=== PATIENT | male | born 1950 | race Caucasian/White ===

== ENCOUNTER 2016-10-04 09:08 | Emergency (ER) | payer MEDICARE, BC ==
[2016-10-04] MEDS ORDERED: LIDOCAINE VISCOUS 2% 15 ML CUP MUCOUS MEM STA (09:34)
--- NOTE | 2016-10-04 10:08 | ED ---
ENT HPI - General Chief complaint: ENT Stated complaint: sorethroat, congestion Time Seen by Provider: 10/04/16 09:16 Source: patient, RN notes reviewed Mode of arrival: ambulatory Limitations: no limitations - History of Present Illness Initial comments: 65-year-old male presents emergency Department chief complaint throat irritation. Patient states he's had this for the past 2 or 3 days. Patient states pain and he points to the middle of his neck. Patient states he's had a cough with some phlegm production with this. Patient denies any fever chills. Patient denies any history of this in the past. Patient states he has pain when he tries to swallow water. Patient states he took some of the throat medicine he states his tooth that hit the bone infectious cause burning. Patient states he's never having tingling this before. Patient states is not currently having any other symptoms.Patient denies any recent fever, chills, shortness of breath, chest pain, back pain, abdominal pain, nausea vomiting, numbness or tingling, dysuria or hematuria, constipation or diarrhea, headaches or visual changes, or any other current symptoms. - Related Data Home Medications Medication Instructions Recorded Confirmed Fluticasone/Salmeterol [Advair 1 puff INHALATION RT-BID 04/22/15 10/04/16 100-50 Diskus] Omeprazole 40 mg PO AC-BRKFST 04/22/15 10/04/16 Multivitamin [Men's Multi-Vitamin] 1 tab PO DAILY 10/16/15 10/04/16 Verapamil HCl [Verapamil ER] 180 mg PO DAILY 10/04/16 10/04/16 Previous Rx's Medication Instructions Recorded Atorvastatin [Lipitor] 80 mg PO DAILY #30 tab 04/23/15 Edoxaban Tosylate [Savaysa] 60 mg PO DAILY #90 tab 10/17/15 Flecainide [Tambocor] 100 mg PO Q12HR #180 tablet 10/17/15 Metoprolol Tartrate 25 mg PO BID #30 tab 10/24/15 Albuterol Inhaler [Ventolin Hfa 1 - 2 puff INHALATION Q4-6H PRN #1 10/04/16 Inhaler] inhaler Albuterol Nebulized [Ventolin 2.5 mg INHALATION Q4H #20 nebu 10/04/16 Nebulized] Azithromycin [Zithromax] 250 mg PO DIRECTED #6 tab 10/04/16 predniSONE 50 mg PO DAILY #5 tab 10/04/16 Allergies Allergy/AdvReac Type Severity Reaction Status Date / Time No Known Allergies Allergy Verified 10/04/16 09:30 Review of Systems ROS Statement: Those systems with pertinent positive or pertinent negative responses have been documented in the HPI. ROS Other: All systems not noted in ROS Statement are negative. Past Medical History Past Medical History: Atrial Fibrillation, Asthma, GERD/Reflux, Hyperlipidemia Additional Past Medical History / Comment(s): Chronic kidney disease stage III History of Any Multi-Drug Resistant Organisms: None Reported Past Surgical History: Appendectomy Past Anesthesia/Blood Transfusion Reactions: No Reported Reaction Past Psychological History: No Psychological Hx Reported Smoking Status: Current some day smoker Past Alcohol Use History: None Reported Additional Past Alcohol Use History / Comment(s): OCCASIONAL CIGARS QUIT 2012 he denies any cigarette smoking, medical marijuana, marijuana, street drug use. Past Drug Use History: None Reported - Past Family History Father Family Medical History: Cancer Additional Family Medical History / Comment(s): BONE CANCER Sister(s) Family Medical History: Cancer, GERD/Reflux Additional Family Medical History / Comment(s): ESOPHAGEAL CANCER Brother(s) Family Medical History: Cancer Additional Family Medical History / Comment(s): LUNG CANCER General Exam Limitations: no limitations General appearance: alert, in no apparent distress Head exam: Present: atraumatic, normocephalic, normal inspection Eye exam: Present: normal appearance, PERRL, EOMI. Absent: scleral icterus, conjunctival injection, periorbital swelling ENT exam: Present: normal exam, mucous membranes moist Neck exam: Present: normal inspection. Absent: tenderness, meningismus, lymphadenopathy Respiratory exam: Present: normal lung sounds bilaterally. Absent: respiratory distress, wheezes, rales, rhonchi, stridor Cardiovascular Exam: Present: regular rate, normal rhythm, normal heart sounds. Absent: systolic murmur, diastolic murmur, rubs, gallop, clicks GI/Abdominal exam: Present: soft, normal bowel sounds. Absent: distended, tenderness, guarding, rebound, rigid Back exam: Present: normal inspection Neurological exam: Present: alert, oriented X3, CN II-XII intact. Absent: motor sensory deficit Psychiatric exam: Present: normal affect, normal mood Skin exam: Present: warm, dry, intact, normal color. Absent: rash Course Vital Signs 10/04/16 10/04/16 10/04/16 09:12 11:13 11:19 Temperature 97.9 F Pulse Rate 88 88 89 Respiratory 20 Rate Blood Pressure 170/89 O2 Sat by Pulse 96 Oximetry Medical Decision Making - Medical Decision Making 65-year-old male presents emergency department with a chief complaint of throat irritation. Patient is able to tolerate a warm glass of water here in the emergency department. At this time the patient seems to be intermittent did help him and he is able to tolerate drinking water includes cough. This is most likely suffering from a bronchitis. Patient has improved with the breathing treatment. We discussed was started on antibiotics and steroids. We discussed that he needs to see his doctor in the next 2 days to be reassessed. We did discuss that there could be something in throat and he may need additional testing such as scoping to look for this if this does not clear up with the medicine. Patient stated he understood and started his . All their questions have been answered. They will be discharged home. - Radiology Data Radiology results: report reviewed, image reviewed Disposition Clinical Impression: Bronchitis Disposition: HOME SELF-CARE Condition: Stable Instructions: Acute Bronchitis (ED) Additional Instructions: Please use medication as discussed. Please follow up with family doctor if symptoms have not improved over the next two days. Please return to the emergency room if your symptoms increase or worsen or for any other concerns. Prescriptions: Albuterol Inhaler [Ventolin Hfa Inhaler] 1 - 2 puff INHALATION Q4-6H PRN #1 inhaler PRN Reason: Cough Albuterol Nebulized [Ventolin Nebulized] 2.5 mg INHALATION Q4H #20 nebu Azithromycin [Zithromax] 250 mg PO DIRECTED #6 tab predniSONE 50 mg PO DAILY #5 tab Referrals: Norbert Garay MD [Primary Care Provider] - 1-2 days Time of Disposition: 11:31
--- NOTE | 2016-10-04 10:21 | XR ---
EXAMINATION TYPE: XR chest 2V DATE OF EXAM: 10/04/2016 9:45 AM COMPARISON: Prior chest x-ray 24 October 2015 HISTORY: Cough TECHNIQUE: Frontal and lateral views of the chest are obtained. FINDINGS: There is no focal air space opacity, pleural effusion, or pneumothorax seen. The cardiac silhouette size is within normal limits. Prominent lung volume may be indicative of COPD. There is b ronchial wall thickening. The osseous structures are intact. IMPRESSION: Correlate for bronchitis.
[2016-10-04] MEDS ORDERED: IPRATROPIUM-ALBUTEROL 3 ML NEB INHALATION STA (10:25)
[2016-10-04 11:38] VITALS: BP 157/91; PULSE 86; RESP 18; TEMP 98
== END 2016-10-04 11:36 | disposition home or self-care (01) ==
LOC: EC 09:08
DX: J40 Bronchitis, not specified as acute or chronic (principal); I48.91 Unspecified atrial fibrillation; J45.909 Unspecified asthma, uncomplicated; E78.5 Hyperlipidemia, unspecified; N18.3 Chronic kidney disease, stage 3 (moderate); K21.9 Gastro-esophageal reflux disease without esophagitis; F17.290 Nicotine dependence, other tobacco product, uncomplicated; Z79.51 Long term (current) use of inhaled steroids; Z79.01 Long term (current) use of anticoagulants; Z79.899 Other long term (current) drug therapy
CPT/HCPCS: 71020; 94640; 99284

== ENCOUNTER → 2016-10-11 | Outpatient (CLI) | payer MEDICARE, BC ==
--- NOTE | 2016-10-11 09:16 | CT ---
EXAMINATION TYPE: CT chest wo con DATE OF EXAM: 10/11/2016 7:41 AM COMPARISON: NONE HISTORY: chronic bronchitis CT DLP: 674.4 mGycm Automated exposure control for dose reduction was used. Limited axial acquisition obtained through the lungs with high-resolution algorithm. FINDINGS: There is no significant bronchiectasis. Bronchial wall thickening is noted centrally. No significant pulmonary fibrosis or airspace disease, no evident lung mass. No endobronchial lesion, pleural or per icardial effusion. There are coronary artery calcifications, no pleural or pericardial effusion. Ther e is a hiatal hernia present, correlate for gastroesophageal reflux disease. IMPRESSION: FINDINGS COMPATIBLE WITH PATIENT'S HISTORY OF CHRONIC BRONCHITIS. HIATAL HERNIA DESCRIBED.
--- NOTE | 2016-10-11 09:22 | CT ---
"EXAMINATION TYPE: CT soft tissue neck wo con DATE OF EXAM: 10/11/2016 7:41 AM COMPARISON: NONE HISTORY: enlarged lymph nodes CT DLP: 463.9 mGycm Automated exposure control for dose reduction was used. Helical acquisition obtained from the skull b ase through the upper chest without contrast FINDINGS: Lack of intravenous contrast could compromise sensitivity. Anterior cervical chain nodes do not appea r enlarged by CT criteria. There is a four-vessel arch. No superior mediastinal adenopathy or clavicu lar adenopathy evident. Low dense focus within the right lobe of the thyroid measures 13 to 14 mm. Sa livary glands show symmetric appearance. Skull base is normal. Atheromatous change present within the cerebral vasculature. Inflammatory changes noted in the left maxillary sinus. Lung apices are unrema rkable. There is a spinal curvature. At the level of the vallecula, piriform sinus on the left shows abnormal increased soft tissue as com pared to the right, there is a nodular appearance at the posterior lateral aspect of the supraglottic tissues extending into the airway. IMPRESSION: ABNORMAL SOFT TISSUE PRESENT AT THE LEVEL OF THE PIRIFORM SINUS ON THE LEFT DESCRIBED. RECOMMEND E NT CONSULT, CONSIDER DIRECT VISUALIZATION. A Yellow message has been communicated to Norbert Garay MD via the [employer] | Critical Result sy stem on 10/11/2016 9:20 AM, Message ID [id number]."
== END | disposition home or self-care (01) ==
LOC: RADCTMAIN 07:00
PROVIDERS: ATTEND Internal Medicine Geriatric Medicine
DX: J42 Unspecified chronic bronchitis (principal); K44.9 Diaphragmatic hernia without obstruction or gangrene; M79.89 Other specified soft tissue disorders
CPT/HCPCS: 70490; 71250

== ENCOUNTER 2016-11-11 12:11 | Day surgery (SDC) | payer MEDICARE, BC ==
[~2016-11-11 12:11] MED LIST: ALPRAZolam 0.25 MG TAB PO ONE; SODIUM BICARB 4% 5 ML VIAL (0.48 MEQ/ML) MISCELLANE PRN
[2016-11-11 12:58] VITALS: RESP 16; TEMP 98
--- NOTE | 2016-11-11 13:37 | US ---
ULTRASOUND GUIDED FNA THYROID BIOPSY: CLINICAL HISTORY: Request for right thyroid nodule FNA FINDINGS: The procedure was explained to the patient. The risks, complications, benefits and alternatives were discussed and any questions were answered. Informed consent was obtained. Patient was placed supin e on the ultrasound table and prepped and draped in the usual sterile fashion. Utilizing a 25 gauge needle, five passes were made into the requested right thyroid nodule. Patient was stable throughout the procedure. Pathology is pending. All elements of maximal barrier technique were utilized. IMPRESSION: 1. Successful ultrasound guided FNA thyroid biopsy.
[2016-11-11 13:50] VITALS: BP 126/83; PULSE 65
--- NOTE | 2016-11-11 15:06 | US ---
EXAMINATION TYPE: US thyroid st tissue head/neck DATE OF EXAM: 11/11/2016 12:50 PM COMPARISON: on PACS CLINICAL HISTORY: E04.1 Thyroid nodule. nodule seen on CT GLAND SIZE: Right Lobe: 4.9 x 2.2 x 1.8 cm Overall Parenchyma: homogenous Left Lobe: 4.0 x 2.0 x 1.9 cm Overall Parenchyma: homogeneous Isthmus Thickness: 0.4 cm NODULES RIGHT: # of nodules measured on right: 2 1. 2.0 X 1.1 x 1.4 cm Complex nodule at the lower pole with well-defined margins. This nodule is w ider than tall and shows intranodular vascularity. Prior size: no prior 2. 0.8 X 0.7 x 0.5 cm hypoechoic solid nodule at the lower pole with well-defined margins. This nod ule is wider than tall and shows intranodular vascularity. Prior size: no prior LEFT: # of nodules measured on left: 1 1. 1.1 X 1.0 x 0.7 cm hypoechoic solid nodule at the mid pole with well-defined margins. This nodu le is wider than tall and shows no intranodular vascularity. Prior size: no prior 2. There is a 0.8 x 0.5 cm hypoechoic homogenous small lymph node present. ISTHMUS: # of nodules measured in the isthmus: 0 TECHNOLOGIST IMPRESSION: Multiple nodules seen in bilateral thyroid lobes. Bilateral neck scanned, no abnormal lymphadenopathy noted. IMPRESSION: 1. Complex hypoechoic nodule mid right lobe thyroid. Smaller nodule is also adjacent.
== END 2016-11-11 13:45 | disposition home or self-care (01) ==
LOC: RADPROMAIN 12:11
PROVIDERS: ATTEND Otolaryngology
DX: E04.2 Nontoxic multinodular goiter (principal)
CPT/HCPCS: 10022; 76536; 76942; 88173; 88305

== ENCOUNTER → 2020-06-05 | Outpatient (CLI) | payer BC, MEDICARE ==
[2020-06-05 17:55] LABS: African American GFR (CKD) 88.6 (60.0-200.0); Albumin 4.1 g/dL (3.80-4.90); Albumin/Globulin Ratio 1.86 (1.60-3.17); Anion Gap 6.8 mmol/L (4.00-12.00); Calcium 9.3 mg/dL (8.7-10.3); Carbon Dioxide 29.2 mmol/L (21.6-31.8); Chol/HDL Ratio 3.43; Globulin 2.2 g/dL (1.6-3.3); LDL Cholesterol,Calculated 117.4 mg/dL (0.0-131.0); Magnesium 2.1 mg/dL (1.5-2.4); Non-African American GFR(CKD) 76.5 (60.0-200.0); Total Bilirubin 0.7 mg/dL (0.3-1.2); Total Protein 6.3 g/dL (6.2-8.2); VLDL Calculation 18.6 mg/dL (5.00-40.00)
== END | disposition home or self-care (01) ==
LOC: LABWHC1 10:40
PROVIDERS: ATTEND Nurse Practitioner Adult Health
DX: E78.5 Hyperlipidemia, unspecified (principal); I48.3 Typical atrial flutter
CPT/HCPCS: 36415; 80053; 80061; 83721; 83735; 84443; 84481

== ENCOUNTER 2021-01-14 09:01 | Day surgery (SDC) | payer MEDICARE ==
[2021-01-12 14:33] VITALS: BMI 29.8
[~2021-01-14 09:01] MED LIST changes: -ALPRAZolam 0.25 MG TAB PO ONE; +LACTATED RINGERS 1,000 ML IV SCH; +LIDOCAINE 1% (10MG/ML) FOR IV START INTRADERMA PRN; -SODIUM BICARB 4% 5 ML VIAL (0.48 MEQ/ML) MISCELLANE PRN
[2021-01-14 09:46] VITALS: RESP 16; TEMP 97.3
[2021-01-14] MEDS ORDERED: PROPOFOL 10 MG/ML 20 ML VIAL IV ONE (09:59)
[2021-01-14] MEDS ORDERED: LIDOCAINE 1% INJ 10MG/ML (20 ML MDV) ONE (09:59)
--- NOTE | 2021-01-14 10:08 | P.GSHP ---
History of Present Illness H&P Date: 01/14/21 Chief Complaint: GERD, history of Medley's esophagus This a 70-year-old male presents today for EGD. He has history of GERD and Medley's esophagus. Past Medical History Past Medical History: Atrial Fibrillation, Asthma, CVA/TIA, GERD/Reflux, Hyperlipidemia, Renal Disease, Thyroid Disorder Additional Past Medical History / Comment(s): TIA, period of swallowing difficulty, History of Any Multi-Drug Resistant Organisms: None Reported Past Surgical History: Tonsillectomy Additional Past Surgical History / Comment(s): CARDIOVERSION Past Anesthesia/Blood Transfusion Reactions: No Reported Reaction Smoking Status: Former smoker - Past Family History Father Family Medical History: Cancer Additional Family Medical History / Comment(s): BONE CANCER Sister(s) Family Medical History: Cancer, GERD/Reflux Additional Family Medical History / Comment(s): ESOPHAGEAL CANCER Brother(s) Family Medical History: Cancer Additional Family Medical History / Comment(s): LUNG CANCER Medications and Allergies Home Medications Medication Instructions Recorded Confirmed Type Omeprazole 40 mg PO AC-BRKFST 04/22/15 01/12/21 History Atorvastatin [Lipitor] 80 mg PO DAILY #30 tab 04/23/15 01/12/21 Rx Multivitamin [Men's Multi-Vitamin] 1 tab PO DAILY 10/16/15 01/12/21 History Edoxaban Tosylate [Savaysa] 60 mg PO DAILY #90 tab 10/17/15 01/12/21 Rx Flecainide [Tambocor] 100 mg PO Q12HR #180 tablet 10/17/15 01/12/21 Rx Metoprolol Tartrate 25 mg PO BID #30 tab 10/24/15 01/12/21 Rx Albuterol Inhaler (Mhu) [Ventolin 1 - 2 puff INHALATION Q4-6H PRN #1 10/04/16 01/12/21 Rx Hfa Inhaler (Mhu)] inhaler Albuterol Nebulized [Ventolin 2.5 mg INHALATION Q4H #20 nebu 10/04/16 01/12/21 Rx Nebulized] Verapamil HCl [Verapamil ER] 180 mg PO DAILY 10/04/16 01/12/21 History Budesonide/Formoterol Fumarate 2 puff INHALATION BID 01/12/21 01/12/21 History [Symbicort 160-4.5 Mcg Inhaler] Allergies Allergy/AdvReac Type Severity Reaction Status Date / Time No Known Allergies Allergy Verified 01/14/21 09:37 Surgical - Exam Vital Signs Temp Pulse Resp BP Pulse Ox 97.3 F L 61 16 158/87 96 01/14/21 09:42 01/14/21 09:42 01/14/21 09:42 01/14/21 09:42 01/14/21 09:42 - General well developed, well nourished, no distress - Eyes PERRL - ENT normal pinna - Neck no masses - Respiratory normal expansion - Cardiovascular Rhythm: regular - Abdomen Abdomen: soft, non tender Assessment and Plan Assessment: GERD, history of Medley's. Patient will undergo EGD today.
--- NOTE | 2021-01-14 10:17 | P.OP ---
Date of Procedure: 01/14/21 Preoperative Diagnosis: GERD Postoperative Diagnosis: Antral gastritis Moderate size hiatal hernia Esophagitis Procedure(s) Performed: EGD Anesthesia: MAC Surgeon: Sameer Zaragoza Pathology: other (Antrum, esophagus) Condition: stable Disposition: PACU Description of Procedure: The patient's placed on the endoscopy table in the lateral position. He received IV sedation. The gastro-placed oropharynx passed in the esophagus and the stomach. Scope was placed through the pylorus. The first and second portion of the duodenum appeared normal. Scope was then brought back the antrum and this was mildly inflamed. A biopsies performed. The scope was retroflexed and remainder of the stomach appeared normal. The patient had a moderate size hiatal hernia. The GE junction was at 38 cm. The distal esophagus appeared inflamed a biopsy performed. The proximal esophagus appeared normal. The scope was withdrawn for patient.
[2021-01-14 10:33] VITALS: BP 135/80; PULSE 58
== END 2021-01-14 10:51 | disposition home or self-care (01) ==
LOC: ORWHC2ENDO 09:01
PROVIDERS: ATTEND Surgery
DX: K29.50 Unspecified chronic gastritis without bleeding (principal); K21.00 Gastro-esophageal reflux disease with esophagitis, without bleeding; K44.9 Diaphragmatic hernia without obstruction or gangrene; I48.91 Unspecified atrial fibrillation; J45.909 Unspecified asthma, uncomplicated; Z86.73 Personal history of transient ischemic attack (TIA), and cerebral infarction without residual deficits; E78.5 Hyperlipidemia, unspecified; R13.10 Dysphagia, unspecified; K22.70 Barrett's esophagus without dysplasia; N28.9 Disorder of kidney and ureter, unspecified; E07.9 Disorder of thyroid, unspecified; Z90.89 Acquired absence of other organs; Z87.891 Personal history of nicotine dependence; Z98.890 Other specified postprocedural states; Z80.8 Family history of malignant neoplasm of other organs or systems; Z80.0 Family history of malignant neoplasm of digestive organs; Z80.1 Family history of malignant neoplasm of trachea, bronchus and lung; Z83.79 Family history of other diseases of the digestive system; Z79.01 Long term (current) use of anticoagulants; Z79.899 Other long term (current) drug therapy; Z79.51 Long term (current) use of inhaled steroids; Z79.02 Long term (current) use of antithrombotics/antiplatelets
CPT/HCPCS: 88305; 43239; J2001; J2704

== ENCOUNTER 2021-11-01 09:38 | Day surgery (SDC) | payer MEDICARE ==
[~2021-11-01 09:38] MED LIST changes: -LIDOCAINE 1% (10MG/ML) FOR IV START INTRADERMA PRN
[2021-11-01] MEDS ORDERED: SODIUM CHLORIDE 0.9% 1,000 ML IV ONE (10:15)
[2021-11-01 10:24] LABS: Basophils # (A) 0.1 k/uL (0-0.2); Basophils % (A) 1 %; Eosinophils # (A) 0.8 k/uL (0-0.7); Eosinophils % (A) 8 %; HCT 47.3 % (39.0-53.0); HGB 15.5 gm/dL (13.0-17.5); Lymphocytes # (A) 1.8 k/uL (1.0-4.8); Lymphocytes % (A) 18 %; MCH 30.4 pg (25.0-35.0); MCHC 32.7 g/dL (31.0-37.0); MCV 92.8 fL (80.0-100.0); Mean Platelet Volume 8.1; Monocytes # (A) 0.5 k/uL (0-1.0); Monocytes % (A) 5 %; Neutrophils # (A) 6.6 k/uL (1.3-7.7); Neutrophils % (A) 67 %; Platelet Count 236 k/uL (150-450); RDW 12.9 % (11.5-15.5)
[2021-11-01 10:34] LABS: Calcium 9.6 mg/dL (8.4-10.2); Potassium 4.5 mmol/L (3.5-5.1)
[2021-11-01] MEDS ORDERED: WATER FOR INJECTION, STERILE 10 ML VIAL IV ONE (12:57)
[2021-11-01] MEDS ORDERED: SUCCINYLCHOLINE CHLORIDE 100 MG/5 ML SYR IV ONE (12:57)
[2021-11-01] MEDS ORDERED: HYDROmorphone (PF) 1 MG/ML ONE (12:57)
[2021-11-01] MEDS ORDERED: ISOPROTERENOL 250 MCG/1.25 ML SYR IV ONE (12:57)
[2021-11-01] MEDS ORDERED: MIDAZOLAM 2 MG/2 ML VIAL ONE (12:57)
[2021-11-01] MEDS ORDERED: HEPARIN SODIUM,PORCINE 10,000 UNIT/ML 1 ML VIAL ONE (12:57)
[2021-11-01] MEDS ORDERED: PHENYLEPHRINE-0.9% NACL SYG 1,000 MCG/10 ML SYRINGE ONE (12:57)
[2021-11-01] MEDS ORDERED: PROPOFOL 10 MG/ML 20 ML VIAL IV ONE (12:57)
[2021-11-01] MEDS ORDERED: fentaNYL (PF) 50 MCG/ML 2 ML AMP ONE (12:57)
[2021-11-01] MEDS ORDERED: HEPARIN SOD,PORK IN 0.45% NACL 25,000 UNIT in 0.45% NACL 1 250ML.BAG IV ONE (13:50)
[2021-11-01] MEDS ORDERED: LIDOCAINE 1% INJ 10MG/ML (20 ML MDV) SQ ONE (13:55)
[2021-11-01] MEDS ORDERED: LIDOCAINE 1% INJ 10MG/ML (20 ML MDV) ONE (13:56)
[2021-11-01] MEDS ORDERED: ACETAMINOPHEN TAB 325 MG TAB PO PRN (15:52)
[2021-11-01] MEDS ORDERED: IOPAMIDOL-370 100ML BTL INJ ONE (15:58)
[2021-11-01 16:43] VITALS: RESP 16
--- NOTE | 2021-11-01 16:49 | P.EPPROC ---
- EP Procedure Note Electrophysiology Procedure Note: PROCEDURE A. fib ablation/pulmonary vein isolation DIAGNOSIS Atrial fibrillation, symptomatic, refractory to therapy, paroxysmal RESULT No left atrial appendage mass seen on intracardiac echo Successful A. fib ablation/pulmonary vein isolation of all veins using cryo- ablation, including the mackenzie on both sides Complete entrance block in all 4 veins confirmed No evidence for phrenic nerve injury Esophageal deflection YES mild leftward deflection needed during right pulmonary vein isolation PROCEDURE DETAILS Patient was brought to the EP lab in a fasting state after obtaining written informed consent. Procedure performed under general anesthesia Esophagus was intubated. Esophageal temperature monitoring with circa catheter. Esophageal deflection with an endoscope to avoid hypothermia of the esophagus. After initial muscle relaxant use, muscle relaxants were not given thereafter in order to assess phrenic nerve during procedure. Patient prepped and draped as per protocol Cryo ablation-set up with standard preparation of the cryoablation tools done. Femoral Venous access obtained on the right and left groins and sheaths placed Diagnostic catheters for the high right atrium, phrenic nerve stimulation and pacing, His bundle, coronary sinus placed Intracardiac echo catheter placed. Long sheath placed in the right atrium Left and right transseptal catheterization performed under intracardiac echo guidance. Intravenous heparin with aCT above 300 Later, catheter positioning and balloon positioning in the left atrium and pulmonary veins, under intracardiac echo guidance Diagnostic EP study with coronary sinus pacing and recording Baseline measurements: Sinus cycle length 776 ms, SD interval 120 ms, QRS 123 ms and QT interval 400 ms AH 71 ms and HV interval 56 ms Sinus node recovery times at 600, 540 ms were 1196, 1634 and 1271 ms. AV node Wenckebach block f440 ms from the coronary sinus Slow pathway was noted with high right atrial pacing at 470 ms AV node Wenckebach block 410 ms Atrial extra stimulation after double extrastimuli, with 2 Different DrCarine trains. No SVT induced Excess ablation performed on Isuprel. No SVT Ventricular extra stimulation from the RV septum. No SVT Transseptal catheterization performed RA pressure 14/8/11 LA pressure 20/10/14 Transseptal catheterization performed with standard sheath. The cryoablation sheath was then placed with an over the wire exchange without any acute complications. The cryoablation balloon was placed in the office of each pulmonary vein and all 4 pulmonary veins were isolated. IV dye was injected to confirm occlusion. Goal: achieve complete occlusion of the pulmonary vein, achieve -30 degrees C at 30 seconds and achieve -40 degrees C at 60 seconds and a time to effect of less than 60 seconds. If not, the balloon was repositioned to obtain this result After completion of Cryoblation with durations from 180-240 seconds, entrance block was confirmed with the Attain circular catheter in a roving fashion around the antrum of the pulmonary veins Phrenic nerve pacing was performed from the SVC, right innominate vein area and diaphragm voltage was monitored. Diaphragmatic contractions were also monitored manually for strength of contraction. At the end of the procedure the Achieve catheter was once again used to check for entrance block Phrenic nerve stimulation was performed to confirm diaphragmatic stimulation the end of the procedure Cine fluoroscopy was performed at the very end of the procedure to confirm movement of both diaphragms with inspiration and expiration At the end of the procedure the patient was extubated Venous sheaths were removed and hemostasis assured with a closure device PROCEDURES PERFORMED Diagnostic EP study CS pacing and recording Left and right transseptal catheterization Catheter the mapping of the tachycardia Intracardiac echocardiography Pulmonary vein isolation with transseptal and comprehensive EPS, 66031 Drug infusion, [id number]
[2021-11-01] MEDS: ACETAMINOPHEN IV (For NPO) 1,000 MG in EMPTY BAG 1 BAG IVPB ONE ×2 (17:00→17:15)
[2021-11-01] MEDS: SYMBICORT 160-4.5 MCG INHALER INHALATION SCH (20:01)
[2021-11-01] MEDS: ALBUTEROL NEBULIZED 2.5 MG/3 ML INHALATION SCH ×2 (20:01)
[2021-11-01] MEDS: FLECAINIDE 50 MG TAB PO SCH (20:55)
[2021-11-01] MEDS: METOPROLOL TARTRATE 25 MG TAB PO SCH (20:55)
[2021-11-01] MEDS ORDERED: RIVAROXABAN 20 MG TAB PO SCH (21:00)
[2021-11-02] MEDS: ALBUTEROL NEBULIZED 2.5 MG/3 ML INHALATION SCH ×5 (00:21→15:11)
[2021-11-02] MEDS: SYMBICORT 160-4.5 MCG INHALER INHALATION SCH (07:29)
[2021-11-02] MEDS ORDERED: PANTOPRAZOLE 40 MG TABLET PO SCH (07:30)
[2021-11-02] MEDS: METOPROLOL TARTRATE 25 MG TAB PO SCH (08:56)
[2021-11-02] MEDS: FLECAINIDE 50 MG TAB PO SCH (08:56)
[2021-11-02] MEDS ORDERED: ATORVASTATIN 20 MG TAB PO SCH (09:00)
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
[2021-11-02 16:16] VITALS: BP 129/75; PULSE 92; TEMP 97.5
== END 2021-11-02 16:30 | disposition home or self-care (01) ==
LOC: CATHEP 09:38 → 6NMEDSUR 15:40 → CATHEP 11-02 16:30
PROVIDERS: ATTEND Internal Medicine Clinical Cardiac Electrophysiology
DX: I48.0 Paroxysmal atrial fibrillation (principal); E07.9 Disorder of thyroid, unspecified; E78.5 Hyperlipidemia, unspecified; Z86.73 Personal history of transient ischemic attack (TIA), and cerebral infarction without residual deficits; K21.9 Gastro-esophageal reflux disease without esophagitis; N28.9 Disorder of kidney and ureter, unspecified; Z20.822 Contact with and (suspected) exposure to COVID-19; Z79.899 Other long term (current) drug therapy; Z79.01 Long term (current) use of anticoagulants
CPT/HCPCS: 94640 ×4; 93623; 93656; 80048; 85025; 87635; C1894 ×2; C1769 ×5; C1760; C1730 ×2; C1759; C1893; C1733; C1766; J2250; J1644 ×2; J2001; J3010; J1170; J0131; J2370; J0330; J2704; Q9967

== ENCOUNTER → 2022-02-07 | Outpatient (CLI) | payer MEDICARE ==
--- NOTE | 2022-02-07 08:30 | US ---
EXAMINATION TYPE: US kidneys/renal and bladder DATE OF EXAM: 02/07/2022 COMPARISON: NONE CLINICAL HISTORY: R79.9 abnormal blood chemistry. EXAM MEASUREMENTS: Right Kidney: 10.9 x 5.3 x 4.9 cm Left Kidney: 10.9 x 5.3 x 5.4 cm Right Kidney: No hydronephrosis or masses seen Left Kidney: No hydronephrosis or masses seen, inferior pole limited by overlying bowel gas Bladder: wnl Bilateral Jets seen: yes There is no evidence for hydronephrosis at this point in time. No nephrolithiasis is seen. No dipesh s are identified on images obtained. The urinary bladder is adequately distended. Bilateral uretera l jets are seen. IMPRESSION: No hydronephrosis seen bilaterally.
== END | disposition home or self-care (01) ==
LOC: RADUSWWP 07:47
PROVIDERS: ATTEND Internal Medicine Geriatric Medicine
DX: R79.9 Abnormal finding of blood chemistry, unspecified (principal)
CPT/HCPCS: 76770

== ENCOUNTER 2022-06-30 09:25 | Day surgery (SDC) | payer MEDICARE ==
[2022-06-29 13:40] VITALS: BMI 29.1
[~2022-06-30 09:25] MED LIST changes: +DEXAMETHASONE SOD PHOSPHATE 4 MG/ML 1 ML VIAL IV ONE; +HYDROmorphone 0.5 MG/0.5 ML SYRINGE IVP PRN; +LIDOCAINE 1% (10MG/ML) FOR IV START INTRADERMA PRN; +ONDANSETRON 4 MG/2 ML VIAL IVP ONE; +ONDANSETRON 4 MG/2 ML VIAL IVP PRN
[2022-06-30 10:04] VITALS: RESP 16; TEMP 96.5
--- NOTE | 2022-06-30 10:46 | P.GSHP ---
History of Present Illness H&P Date: 06/30/22 Chief Complaint: Screening colonoscopy Is a 71-year-old male who had a recent positive colon guard test. Patient presents today for screening colonoscopy Past Medical History Past Medical History: Atrial Fibrillation, Asthma, CVA/TIA, GERD/Reflux, Hyperlipidemia, Osteoarthritis (OA), Prostate Disorder, Renal Disease Additional Past Medical History / Comment(s): TIA, MELENOMA -CANCER, History of Any Multi-Drug Resistant Organisms: None Reported Past Surgical History: Ablation, Tonsillectomy Additional Past Surgical History / Comment(s): CARDIOVERSION, COLONOSCOPY X2, CARDIAC ABLATION Past Anesthesia/Blood Transfusion Reactions: No Reported Reaction Smoking Status: Former smoker - Past Family History Father Family Medical History: Cancer Additional Family Medical History / Comment(s): BONE CANCER Sister(s) Family Medical History: Cancer, GERD/Reflux Additional Family Medical History / Comment(s): ESOPHAGEAL CANCER Brother(s) Family Medical History: Cancer Additional Family Medical History / Comment(s): LUNG CANCER, #2BROTHER - LIVER Medications and Allergies Home Medications Medication Instructions Recorded Confirmed Type Omeprazole 40 mg PO AC-BRKFST 04/22/15 06/29/22 History Metoprolol Tartrate 25 mg PO BID #30 tab 10/24/15 06/29/22 Rx Albuterol Inhaler [Ventolin Hfa 1 - 2 puff INHALATION Q4-6H PRN #1 10/04/16 06/29/22 Rx Inhaler] inhaler Budesonide/Formoterol Fumarate 2 puff INHALATION BID 01/12/21 06/29/22 History [Symbicort 160-4.5 Mcg Inhaler] Rivaroxaban [Xarelto] 20 mg PO HS 11/01/21 06/29/22 History Rosuvastatin [Crestor] 10 mg PO DAILY 11/01/21 06/29/22 History Albuterol Nebulized [Ventolin 2.5 mg INHALATION Q6H PRN 06/29/22 06/29/22 History Nebulized] Flecainide [Tambocor] 50 mg PO Q12HR 06/29/22 06/29/22 History Tamsulosin [Flomax] 0.4 mg PO BID 06/29/22 06/29/22 History Allergies Allergy/AdvReac Type Severity Reaction Status Date / Time No Known Allergies Allergy Verified 06/30/22 09:51 Surgical - Exam Vital Signs Temp Pulse Resp BP Pulse Ox 96.5 F L 80 16 161/98 98 06/30/22 10:00 06/30/22 10:00 06/30/22 10:00 06/30/22 10:00 06/30/22 10:00 - General well developed, well nourished, no distress - Eyes PERRL - ENT normal pinna - Neck no masses - Respiratory normal expansion - Cardiovascular Rhythm: regular - Abdomen Abdomen: soft, non tender Assessment and Plan Assessment: Positive colon guard test. We'll perform screening colonoscopy
[2022-06-30] MEDS ORDERED: PROPOFOL 10 MG/ML 20 ML VIAL IV ONE (10:48)
--- NOTE | 2022-06-30 11:05 | P.OP ---
Date of Procedure: 06/30/22 Preoperative Diagnosis: Positive colon guard test Screening colonoscopy Postoperative Diagnosis: Normal colon Large thrombosed external hemorrhoid Procedure(s) Performed: Colonoscopy Anesthesia: MAC Surgeon: Sameer Zaragoza Pathology: none sent Condition: stable Disposition: PACU Description of Procedure: The patient's placed on the endoscopy table in the lateral position. He received IV sedation. Digital rectal exam was performed. This revealed a large thrombosed external hemorrhoids. The flexible colonoscope was then placed patient anus and passed throughout the entire colon. The ileocecal valve was visualized. The cecum, ascending and transverse colon appeared normal. The descending and; appeared normal. Scope was brought back the rectum was normal. Scope was withdrawn the anus and internal hemorrhoids were noted. The scope was withdrawn for patient.
[2022-06-30 11:31] VITALS: BP 147/87; PULSE 75
== END 2022-06-30 11:42 | disposition home or self-care (01) ==
LOC: ORWHC2ENDO 09:25
PROVIDERS: ATTEND Surgery
DX: Z12.11 Encounter for screening for malignant neoplasm of colon (principal); K64.5 Perianal venous thrombosis; K64.8 Other hemorrhoids; J45.909 Unspecified asthma, uncomplicated; I10 Essential (primary) hypertension; I48.91 Unspecified atrial fibrillation; K21.9 Gastro-esophageal reflux disease without esophagitis; E78.5 Hyperlipidemia, unspecified; N40.0 Benign prostatic hyperplasia without lower urinary tract symptoms; M19.90 Unspecified osteoarthritis, unspecified site; N42.9 Disorder of prostate, unspecified; N28.9 Disorder of kidney and ureter, unspecified; Z90.89 Acquired absence of other organs; Z87.891 Personal history of nicotine dependence; Z80.8 Family history of malignant neoplasm of other organs or systems; Z80.0 Family history of malignant neoplasm of digestive organs; Z80.1 Family history of malignant neoplasm of trachea, bronchus and lung; Z79.51 Long term (current) use of inhaled steroids; Z79.52 Long term (current) use of systemic steroids; Z79.899 Other long term (current) drug therapy; Z86.73 Personal history of transient ischemic attack (TIA), and cerebral infarction without residual deficits
CPT/HCPCS: G0121; J2704; 45378

== ENCOUNTER → 2024-11-28 | Outpatient (CLI) | payer MEDICARE ==
[2024-11-28 15:18] LABS: Basophils # (A) 0.04 X 10*3/uL (0.00-0.10); Basophils % (A) 0.5 %; Eosinophils # (A) 0.66 X 10*3/uL (0.04-0.35); Eosinophils % (A) 8.8 %; HCT 44.4 % (39.6-50.0); HGB 14.4 g/dL (13.0-17.0); Lymphocytes # (A) 1.61 X 10*3/uL (0.90-5.00); Lymphocytes % (A) 21.6 %; MCH 30.1 pg (27.0-32.0); MCHC 32.4 g/dL (32.0-37.0); MCV 92.7 FL (80.0-97.0); Mean Platelet Volume 11.4 FL (9.5-12.2); Monocytes % (A) 9.4 %; NRBC Per 100 WBC 0 X 10*3/uL (0.00-0.01); Neutrophils # (A) 4.42 X 10*3/uL (1.80-7.70); Neutrophils % (A) 59.3 %; Platelet Count 171 X 10*3/uL (140-440); RBC 4.79 X 10*6/uL (4.40-5.60); RDW 13.4 % (11.5-14.5); WBC 7.46 X 10*3/uL (4.50-10.00)
[2024-11-28 15:20] LABS: Blood Urea Nitrogen 23.7 mg/dL (9.0-27.0); Potassium 4.7 mmol/L (3.5-5.5)
== END | disposition home or self-care (01) ==
LOC: LABPAT 10:54
PROVIDERS: ATTEND Anesthesiology
DX: Z01.818 Encounter for other preprocedural examination (principal)
CPT/HCPCS: 82565; 84132; 84520; 85025; 93005

== ENCOUNTER 2024-12-02 05:33 | Day surgery (SDC) | payer MEDICARE ==
[2024-11-27 12:37] VITALS: BMI 29.8
[2024-12-02] MEDS: IV FLUID CONTINUATION 1,000 ML IV ONE ×4 (06:36→12:26)
[2024-12-02] MEDS: LACTATED RINGERS 1,000 ML IV SCH ×2 (06:37→13:24)
[2024-12-02] MEDS: DEXAMETHASONE SOD PHOSPHATE 4 MG/ML 1 ML VIAL IV ONE (06:55)
[2024-12-02] MEDS: ACETAMINOPHEN TAB 500 MG TAB PO PRN (06:56)
[2024-12-02] MEDS: HEPARIN SODIUM,PORCINE 5,000 UNIT/ML 1 ML VIAL SQ PRN (06:56)
[2024-12-02] MEDS: ONDANSETRON 4 MG/2 ML VIAL IVP ONE (06:56)
[2024-12-02] MEDS ORDERED: GLYCOPYRROLATE 0.2 MG/ML 2 ML VIAL ONE (07:25)
[2024-12-02] MEDS ORDERED: KETOROLAC 15 MG/ML 1 ML VIAL ONE (07:25)
[2024-12-02] MEDS ORDERED: WATER FOR INJECTION, STERILE 10 ML VIAL IV ONE (07:25)
[2024-12-02] MEDS ORDERED: NEOSTIGMINE 1 MG/ML 10 ML VIAL ONE (07:25)
[2024-12-02] MEDS ORDERED: fentaNYL (PF) 50 MCG/ML 2 ML AMP ONE (07:25)
[2024-12-02] MEDS ORDERED: SUCCINYLCHOLINE CHLORIDE 200 MG/10 ML VIAL IV ONE (07:25)
[2024-12-02] MEDS ORDERED: PHENYLEPHRINE 10 MG/ML VIAL ONE (07:25)
[2024-12-02] MEDS ORDERED: PROPOFOL 10 MG/ML 20 ML VIAL IV ONE (07:25)
[2024-12-02] MEDS ORDERED: ePHEDrine 50 MG/ML 1 ML VIAL ONE (07:25)
[2024-12-02] MEDS ORDERED: LIDOCAINE 1% INJ 10MG/ML (20 ML MDV) ONE (07:25)
[2024-12-02] MEDS ORDERED: ROCURONIUM 10 MG/ML (5 ML VIAL) IV ONE (07:25)
[2024-12-02] MEDS: LIDOCAINE 1%-EPI 1:100,000 20 ML VIAL SQ ONE (08:07)
[2024-12-02] MEDS ORDERED: HYDROmorphone 1 MG/ML 1 ML SYRINGE IVP PRN (08:40)
[2024-12-02] MEDS ORDERED: NALOXONE 0.4 MG/ML 1 ML VIAL IV PRN (08:40)
[2024-12-02] MEDS ORDERED: ONDANSETRON 4 MG/2 ML VIAL IVP PRN (08:40)
[2024-12-02] MEDS ORDERED: ACETAMINOPHEN TAB 325 MG TAB PO PRN (08:40)
--- NOTE | 2024-12-02 08:40 | P.OP ---
Date of Procedure: 12/02/24 Preoperative Diagnosis: Paraesophageal hiatal hernia Gerd Postoperative Diagnosis: Same Procedure(s) Performed: Laparoscopic Valeria fundoplication Anesthesia: MURRAY Surgeon: Sameer Zaragoza Estimated Blood Loss (ml): 5 Pathology: none sent Condition: stable Disposition: PACU Description of Procedure: The patient was placed on the operating table in the supine position. The patient received general anesthesia. And was placed in dorsal lithotomy position. The patient was prepped and draped in the usual sterile fashion. The skin incision sites were anesthetized with 1% local Xylocaine. The skin was incised in the left periumbilical area and then using a blade less 5 mm trocar under direct visualization panel cavity was entered. After adequate insufflation the laparoscope was then placed into the peritoneal cavity. Next a 5 mm trochars placed in the right epigastric position. Another 5 millimeter trocar the right lateral position. Another 5 millimeter trocar in the left lateral position a 5 mm trocar is placed in the left epigastric position. And then the initial 5 mm trocar was exchanged for a 10 mm trocar. The left lateral lobe liver was retracted. The hernia was seen. The crural defect was then dissected using the Harmonic scissors device. A 360 crural dissection was performed the esophagus stomach was reduced back into the peritoneal Cavity. The crural defect was then closed using 2-0 Ethibond suture. Next the fundus of the stomach was mobilized using the [place] scissors device. and then a 58- Hebrew bougie dilator was placed oropharynx passed into the esophagus and stomach the fundal plication wrap was then performed by grasping the fundus posteriorly and bringing it around the esophagus and stomach fundoplication was then performed using 2-0 Ethibond suture. Care was taken that the fundal location rested over top of the intra-abdominal esophagus. There was no injury seen to the stomach or esophagus. The dilator was then withdrawn. The abdomen was irrigated there is no bleeding seen. The trochars were then withdrawn and then skin incision sites were closed using 3-0 Monocryl suture Steri-Strips are applied. Patient thought procedure well and sent to recovery room in stable condition.
[2024-12-02] MEDS: HYDROmorphone 0.5 MG/0.5 ML SYRINGE IVP PRN (09:31)
[2024-12-02] MEDS ORDERED: ALBUTEROL NEBULIZED 2.5 MG/3 ML INHALATION PRN (15:22)
--- NOTE | 2024-12-02 16:28 | P.CONS ---
History of Present Illness - Reason for Consult Consult date: 12/02/24 - History of Present Illness Interval History: This is a 73-year-old male patient with past medical history significant for GERD, history of atrial fibrillation status post ablation, on Xarelto, history of paraesophageal hiatal hernia who underwent laparoscopic Valeria fundoplication on 12/02/2024. Interval medicine consulted for medical management. Patient denied any fever, chills, nausea vomiting diarrhea constipation abdominal pain dysuria urgency frequency weakness or numbness of extremities. Patient is afebrile, heart rate 101, respiratory rate 17, blood pressure 156/91, saturating 95% on room air. Assessment and plan: Paraesophageal hiatal hernia: Status post laparoscopic Valeria fundoplication 12/02/2024: Management per primary team Resume Xarelto once okay with general surgery. Bowel/bladder protocol Paroxysmal atrial fibrillation Continue metoprolol Resume Xarelto once okay with general surgery Hyperlipidemia: Rosuvastatin BPH: Flomax COPD: Stable Continue albuterol, Trelegy Ellipta. DVT prophylaxis: Per general surgery Monitor vital signs and labs Labs and medication were reviewed. Continue same treatment. Further recommendations as per clinical course of the patient PHYSICAL EXAMINATION: GENERAL: The patient is A&O x3, NAD HEENT: EOMI, Sclerae anicteric, Moist Mucous membranes Neck: Supple, Non tender, No JVD PULMONARY: Equal breath souds B/L, No wheezing, No crackles. CARDIOVASCULAR: S1, S2 present. No murmurs, rubs, or gallops. ABDOMEN: Soft, nontender, nondistended, normoactive bowel sounds. No guarding or rebound tenderness. Laparoscopic surgical scarsclean/intact. MUSCULOSKELETAL: No edema, No cyanosis. No clubbing. Normal ROM. Intact peripheral pulses. NEUROLOGICAL: CN 2-12 grossly intact. No FND Skin: No Rash REVIEW OF SYSTEMS: CONSTITUTIONAL: No fever or chills. CARDIOVASCULAR: No chest pain, palpitations or syncope. PULMONARY: No shortness of breath, no cough, sore throat. GASTROINTESTINAL: No nausea, vomiting, diarrhea, abdominal pain. : No Dysuria, urgency, frequency. Extremities: No edema. NEUROLOGICAL: No headaches, no weakness, or numbness Dictation was produced using [employer] software. please excuse any grammatical, word or spelling errors. Past Medical History Past Medical History: Atrial Fibrillation, Asthma, CVA/TIA, GERD/Reflux, Hyperlipidemia, Osteoarthritis (OA), Prostate Disorder, Renal Disease Additional Past Medical History / Comment(s): 2019-TIA-no residual effects., MELENOMA -CANCER-no chemo, no radiation, barretts esophagus History of Any Multi-Drug Resistant Organisms: None Reported Past Surgical History: Cardiac Ablation, Tonsillectomy Additional Past Surgical History / Comment(s): CARDIOVERSION, COLONOSCOPY X2, CARDIAC ABLATION ,EGD Past Anesthesia/Blood Transfusion Reactions: No Reported Reaction Additional Past Anesthesia/Blood Transfusion Reaction / Comm: No hx of blood transfusion to date. Past Psychological History: No Psychological Hx Reported Smoking Status: Former smoker Past Alcohol Use History: Occasional Additional Past Alcohol Use History / Comment(s): STARTED SMOKING AT AGE16 QUIT AT AGE 20 STARTED SMOKING CIGARS OCCASIONAL CIGARS QUIT 2012 Past Drug Use History: None Reported - Past Family History Father Family Medical History: Cancer Additional Family Medical History / Comment(s): BONE CANCER Sister(s) Family Medical History: Cancer, GERD/Reflux Additional Family Medical History / Comment(s): ESOPHAGEAL CANCER Brother(s) Family Medical History: Cancer Additional Family Medical History / Comment(s): LUNG CANCER, #2BROTHER - LIVER Medications and Allergies Home Medications Medication Instructions Recorded Confirmed Type Omeprazole 40 mg PO AC-BRKFST 04/22/15 12/02/24 History Metoprolol Tartrate 25 mg PO BID #30 tab 10/24/15 12/02/24 Rx Albuterol Inhaler [Ventolin Hfa 1 - 2 puff INHALATION Q4-6H PRN #1 10/04/16 12/02/24 Rx Inhaler] inhaler Rivaroxaban [Xarelto] 20 mg PO HS 11/01/21 12/02/24 History Rosuvastatin [Crestor] 10 mg PO HS 11/01/21 12/02/24 History Tamsulosin [Flomax] 0.4 mg PO BID 06/29/22 12/02/24 History Fluticasone/Umeclidin/Vilanter 1 puff INHALATION QAM 11/06/24 12/02/24 History [Trelegy Ellipta 200-62.5-25] Multivitamins, Thera [Multivitamin 1 tab PO QAM 11/27/24 12/02/24 History (formulary)] Allergies Allergy/AdvReac Type Severity Reaction Status Date / Time No Known Allergies Allergy Verified 12/02/24 06:18 Physical Exam Vitals: Vital Signs Temp Pulse Resp BP Pulse Ox 12/02/24 12:40 96.9 F L 101 H 17 156/91 95 12/02/24 12:25 94 16 146/71 100 12/02/24 11:45 82 16 157/84 100 12/02/24 11:15 94 16 142/86 100 12/02/24 10:45 89 16 143/81 100 12/02/24 10:30 86 16 136/74 99 12/02/24 10:15 84 16 138/68 100 12/02/24 10:00 81 16 136/69 100 12/02/24 09:50 83 16 128/62 100 12/02/24 09:35 85 16 122/61 95 12/02/24 09:20 86 18 125/60 100 12/02/24 09:05 109 H 18 139/70 100 12/02/24 08:50 97.2 F L 95 18 143/72 98 12/02/24 06:23 98.9 F 67 18 115/67 97 Intake and Output 12/02/24 12/02/24 12/02/24 06:59 14:59 22:59 Intake Total 1350 Output Total 5 Balance 1345 Intake: IV 1350 Output: Estimated Blood Loss 5 Other: Weight 92.4 kg 92.4 kg
[2024-12-02] MEDS: SYMBICORT 160-4.5 MCG INHALER INHALATION SCH (16:30)
[2024-12-02] MEDS: TAMSULOSIN 0.4 MG CAP.ER.24H PO SCH (20:53)
[2024-12-02] MEDS: METOPROLOL TARTRATE 25 MG TAB PO SCH (20:53)
[2024-12-02] MEDS: ATORVASTATIN 20 MG TAB PO SCH (20:53)
[2024-12-03 03:42] VITALS: PULSE 71
[2024-12-03] MEDS: PANTOPRAZOLE 40 MG TABLET PO SCH (06:38)
[2024-12-03 07:48] VITALS: BP 158/79; RESP 16; TEMP 97.8
[2024-12-03] MEDS: MULTIVITAMINS, THERA 1 EACH TAB PO SCH (08:33)
[2024-12-03] MEDS: ENOXAPARIN 40 MG/0.4 ML SYRINGE SQ SCH (08:33)
[2024-12-03] MEDS: TIOTROPIUM 2.5 MCG INHALER INHALATION SCH (09:43)
--- NOTE | 2024-12-03 10:14 | P.DS ---
Providers Expected date of discharge: 12/03/24 Attending physician: Sameer Zaragoza Consults: 12/02/24 08:40 Consult Physician Routine Consulting Provider: Yas Mcknight Consult Reason/Comments: Medical management status post paraesophageal hiatal hernia repair Do you want consulting provider notified?: Yes Primary care physician: Norbert Jarrod [facility] Course: Discharge diagnosis Paraesophageal hiatal hernia [facility] Hospital course This is a 73-year-old male who has a known history of paraesophageal hiatal hernia and GERD. He is status post laparoscopic Valeria fundoplication. He tolerated surgery well. His pain is controlled. He is tolerating diet. He is having flatus. He has been up and ambulating. Denies any difficulty urinating. He is afebrile. He is stable for discharge. Physician Music Pastor note has been reviewed by physician. Signing provider agrees with the documented findings, assessment, and plan of care. Patient Condition at Discharge: Stable Plan - Discharge Summary Discharge Rx Participant: Yes New Discharge Prescriptions: New Acetaminophen Tab [Tylenol Tab] 650 mg PO Q4H PRN #30 tablet PRN Reason: Pain Continue Omeprazole 40 mg PO AC-BRKFST Metoprolol Tartrate 25 mg PO BID #30 tab Albuterol Inhaler [Ventolin Hfa Inhaler] 1 - 2 puff INHALATION Q4-6H PRN #1 inhaler PRN Reason: Cough Rosuvastatin [Crestor] 10 mg PO HS Tamsulosin [Flomax] 0.4 mg PO BID Fluticasone/Umeclidin/Vilanter [Trelegy Ellipta 200-62.5-25] 1 puff I NHALATION QAM Multivitamins, Thera [Multivitamin (formulary)] 1 tab PO QAM No Action Rivaroxaban [Xarelto] 20 mg PO HS Discharge Medication List Omeprazole 40 mg PO AC-BRKFST 04/22/15 [History] Metoprolol Tartrate 25 mg PO BID #30 tab 10/24/15 [Rx] Albuterol Inhaler [Ventolin Hfa Inhaler] 1 - 2 puff INHALATION Q4-6H PRN #1 inhaler 10/04/16 [Rx] Rivaroxaban [Xarelto] 20 mg PO HS 11/01/21 [History] Rosuvastatin [Crestor] 10 mg PO HS 11/01/21 [History] Tamsulosin [Flomax] 0.4 mg PO BID 06/29/22 [History] Fluticasone/Umeclidin/Vilanter [Trelegy Ellipta 200-62.5-25] 1 puff INHALATION QAM 11/06/24 [History] Multivitamins, Thera [Multivitamin (formulary)] 1 tab PO QAM 11/27/24 [History] Acetaminophen Tab [Tylenol Tab] 650 mg PO Q4H PRN #30 tablet 12/03/24 [Rx] Follow up Appointment(s)/Referral(s): Sameer Zaragoza MD [STAFF PHYSICIAN] - 1 Week Activity/Diet/Wound Care/Special Instructions: No lifting over 10 pounds You may shower. No soaking or tub baths for 2 weeks Very light activity until you are reevaluated at your follow up appointment with your surgeon No straws or carbonated beverages Continue with full liquid diet for the next 2 weeks Okay to resume Xarelto tomorrow 12/04/2024 Discharge Disposition: HOME SELF-CARE
[2024-12-03 10:48] LABS: Basophils # (A) 0.03 X 10*3/uL (0.00-0.10); Basophils % (A) 0.3 %; Eosinophils # (A) 0.14 X 10*3/uL (0.04-0.35); Eosinophils % (A) 1.5 %; HCT 41.8 % (39.6-50.0); HGB 13.4 g/dL (13.0-17.0); Lymphocytes # (A) 1.74 X 10*3/uL (0.90-5.00); Lymphocytes % (A) 18.2 %; MCH 29.8 pg (27.0-32.0); MCHC 32.1 g/dL (32.0-37.0); MCV 92.9 FL (80.0-97.0); Mean Platelet Volume 11.4 FL (9.5-12.2); Monocytes # (A) 0.88 X 10*3/uL (0.20-1.00); Monocytes % (A) 9.2 %; NRBC Per 100 WBC 0 X 10*3/uL (0.00-0.01); Neutrophils # (A) 6.71 X 10*3/uL (1.80-7.70); Neutrophils % (A) 70.2 %; Platelet Count 152 X 10*3/uL (140-440); RDW 13.2 % (11.5-14.5); WBC 9.56 X 10*3/uL (4.50-10.00)
[2024-12-03 11:27] LABS: ALT 26 U/L (10-49); AST 37 U/L (14-35); Albumin 3.7 g/dL (3.8-4.9); Albumin/Globulin Ratio 1.85 Ratio (1.60-3.17); Alkaline Phosphatase 61 U/L (41-126); Blood Urea Nitrogen 14.5 mg/dL (9.0-27.0); Carbon Dioxide 25.9 mmol/L (21.6-31.8); Chloride 102 mmol/L (96-109); Glucose 83 mg/dL (70-110); Potassium 4.3 mmol/L (3.5-5.5); Sodium 138 mmol/L (135-145); Total Bilirubin 0.6 mg/dL (0.3-1.2); Total Protein 5.7 g/dL (6.2-8.2)
--- NOTE | 2024-12-03 15:20 | P.PN ---
Subjective Progress Note Date: 12/03/24 Interval History: This is a 73-year-old male patient with past medical history significant for GERD, history of atrial fibrillation status post ablation, on Xarelto, history of paraesophageal hiatal hernia who underwent laparoscopic Valeria fundoplication on 12/02/2024. Interval medicine consulted for medical management. Patient denied any fever, chills, nausea vomiting diarrhea constipation abdominal pain dysuria urgency frequency weakness or numbness of extremities. Patient is afebrile, heart rate 101, respiratory rate 17, blood pressure 156/91, saturating 95% on room air. Assessment and plan: Paraesophageal hiatal hernia: Status post laparoscopic Valeria fundoplication 12/02/2024: Management per primary team Resume Xarelto once okay with general surgery. Bowel/bladder protocol Paroxysmal atrial fibrillation Continue metoprolol Resume Xarelto once okay with general surgery Hyperlipidemia: Rosuvastatin BPH: Flomax COPD: Stable Continue albuterol, Trelegy Ellipta. Monitor vital signs and labs Labs and medication were reviewed. Continue same treatment. Further recommendations as per clinical course of the patient PHYSICAL EXAMINATION: GENERAL: The patient is A&O x3, NAD HEENT: EOMI, Sclerae anicteric, Moist Mucous membranes Neck: Supple, Non tender, No JVD PULMONARY: Equal breath souds B/L, No wheezing, No crackles. CARDIOVASCULAR: S1, S2 present. No murmurs, rubs, or gallops. ABDOMEN: Soft, nontender, nondistended, normoactive bowel sounds. No guarding or rebound tenderness. MUSCULOSKELETAL: No edema, No cyanosis. No clubbing. Normal ROM. Intact peripheral pulses. NEUROLOGICAL: CN 2-12 grossly intact. No FND Skin: No Rash REVIEW OF SYSTEMS: CONSTITUTIONAL: No fever or chills. CARDIOVASCULAR: No chest pain, palpitations or syncope. PULMONARY: No shortness of breath, no cough, sore throat. GASTROINTESTINAL: No nausea, vomiting, diarrhea, abdominal pain. : No Dysuria, urgency, frequency. Extremities: No edema. NEUROLOGICAL: No headaches, no weakness, or numbness Dictation was produced using [employer] dictation software. please excuse any grammatical, word or spelling errors. Objective - Vital Signs Vital signs: Vital Signs Temp 97.8 F 12/03/24 07:20 Pulse 71 12/03/24 07:57 Resp 16 12/03/24 07:57 BP 158/79 12/03/24 07:20 Pulse Ox 95 12/03/24 07:20 FiO2 Intake & Output 12/02/24 12/03/24 12/03/24 18:59 06:59 18:59 Intake Total 1350 1080 Output Total 5 Balance 1345 1080 Weight 92.4 kg Intake: IV 1350 Oral 1080 Output: Estimated Blood Loss 5 Other: # Voids 1 4 4 - Labs CBC & Chem 7: 12/03/24 05:03 12/03/24 05:03 Labs: Abnormal Lab Results - Last 24 Hours (Table) 12/03/24 12/03/24 Range/Units 05:03 05:03 Immature Gran # 0.06 H (0.00-0.04) X 10*3/uL AST 37 H (14-35) U/L Total Protein 5.7 L (6.2-8.2) g/dL Albumin 3.7 L (3.8-4.9) g/dL
== END 2024-12-03 12:44 | disposition home or self-care (01) ==
LOC: OR 05:33 → 4SSUR 12:18 → OR 12-03 12:44
PROVIDERS: ATTEND Surgery
DX: K21.00 Gastro-esophageal reflux disease with esophagitis, without bleeding (principal); K44.9 Diaphragmatic hernia without obstruction or gangrene; I48.0 Paroxysmal atrial fibrillation; Z79.01 Long term (current) use of anticoagulants; E78.5 Hyperlipidemia, unspecified; N40.0 Benign prostatic hyperplasia without lower urinary tract symptoms; J44.9 Chronic obstructive pulmonary disease, unspecified; Z79.51 Long term (current) use of inhaled steroids
CPT/HCPCS: 94640 ×3; 80053; 85025; 43280; J1644; J1100; J0690; J2405; J1650; J1171